=== PATIENT | male | born 1995 | race Caucasian/White ===

== ENCOUNTER 2019-05-14 23:16 | Emergency (ER) | payer MEDICAID ==
[2019-05-14 23:39] LABS: URINE SOURCE CLEAN C
[2019-05-14 23:40] LABS: URINE BILIRUBIN SMALL (NEGATIVE); URINE BLOOD NEGATIVE (NEGATIVE); URINE GLUCOSE (UA) NEGATIVE (NEGATIVE); URINE KETONE TRACE mg/dL (NEGATIVE); URINE LEUKOCYTE ESTERASE NEGATIVE (NEGATIVE); URINE NITRATE NEGATIVE (NEGATIVE); URINE PH 6.5 (4.6 - 8.0); URINE PROTEIN 30 mg/dL (NEGATIVE)
[2019-05-14 23:48] LABS: URINE CLARITY CLEAR (CLEAR); URINE COLOR YELLOW
[2019-05-14 23:52] LABS: URINE BACTERIA NONE SEEN /hpf (NONE SEEN); URINE EPITHELIAL CELLS RARE /lpf (FEW); URINE MICROSCOPIC INDICATED? YES; URINE RBC NONE SEEN /hpf (0-5); URINE WBC NONE SEEN /hpf (0-5)
[2019-05-14] MEDS ORDERED: Sodium Chloride 0.45% 1,000 ML IV ONE (23:55)
--- NOTE | 2019-05-15 00:02 | ED Physician Chart ---
ED Chief Complaint/HPI - Patient Information Date Seen:: 05/14/19 Time Seen:: 23:26 Chief Complaint:: abdominal pain History of Present Illness:: this is a 23 yo male who states that he has had right flank pain for four days non-radiating associated with vomiting. he admits to drinking alcohol, smoking and using thc. he denies blood in the urine and denies diarrhea. Allergies:: Allergies Allergy/AdvReac Type Severity Reaction Status Date / Time No Known Allergies Allergy Verified 05/14/19 23:19 Vitals:: Vital Signs - 8 hr 05/14/19 23:20 Temp 98.5 F HR 82 RR 20 BP 141/88 O2 Sat % 98 Historian:: Patient Review:: Nurse's Note Reviewed, Old Chart Reviewed ED Review of Systems - Review of Systems General/Constitutional: No fever, No chills, No weight loss, No weakness, No diaphoresis, No edema, No loss of appetite Skin: No skin lesions, No rash, No bruising Head: No headache, No light-headedness Eyes: No loss of vision, No pain, No diplopia ENT: No earache, No nasal drainage, No sore throat, No tinnitus Neck: No neck pain, No swelling, No thyromegaly, No stiffness, No mass noted Cardio Vascular: No chest pain, No palpitations, No PND, No orthopnea, No edema Pulmonary: No SOB, No cough, No sputum, No wheezing GI: Nausea, Vomiting, No diarrhea, Pain (right flank pain), No melena, No hematochezia, No constipation, No hematemesis G/U: No dysuria, No frequency, No hematuria Musculoskeletal: No bone or joint pain, No back pain, No muscle pain Endocrine: No polyuria, No polydipsia Psychiatric: No prior psych history, No depression, No anxiety, No suicidal ideation Hematopoietic: No bruising, No lymphadenopathy Allergic/Immuno: No urticaria, No angioedema Neurological: No syncope, No focal symptoms, No weakness, No paresthesia, No headache, No seizure, No dizziness, No confusion, No vertigo ED Past Medical History - Past Medical History Obtainable: Yes Past Medical History: Other (obesity) Family History: Diabetes Melitus (aunt) Social History: Smoker, Alcohol, Illicit Drug Use, Employed Surgical History: None Psychiatricy History: None Medication: Reviewed Family Medical History - Family Member Mother History Unknown: Yes Hx Family Hypertension: Yes Hx Family Diabetes: Yes ED Physical Exam - Physical Examination General/Constitutional: Awake, Well-developed, well-nourished, Alert, No distress, GCS 15, Non-toxic appearing, Ambulatory Head: Atraumatic Eyes: Lids, conjuctiva normal, PERRL, EOMI Skin: Nl inspection, No rash, No skin lesions, No ecchymosis, Well hydrated, No lymphadenopathy ENMT: External ears, nose nl, Nasal exam nl, Lips, teeth, gums nl Neck: Nontender, Full ROM w/o pain, No JVD, No nuchal rigidity, No bruit, No mass, No stridor Respiratory: Nl effort/Exclusion, Clear to Auscultation, No Wheeze/Rhonchi/Rales Cardio Vascular: RRR, No murmur, gallop, rubs, NL S1 S2 GI: No tenderness/rebounding/guarding, No organomegaly, No hernia, Normal BS's, Nondistended, No mass/bruits, No McBurney tenderness Other GI comments:: tenderness in the right lower quadrant : No CVA tenderness Extremities: No tenderness or effusion, Full ROM, normal strength in all extremities, No edema, Normal digits & nails Neuro/Psych: Alert/oriented, DTR's symmetric, Normal sensory exam, Normal motor strength, Judgement/insight normal, Mood normal, Normal gait, No focal deficits Misc: Normal back, No paraspinal tenderness ED Labs/Radiology/EKG Results - Lab Results Results: Laboratory Tests 05/14/19 23:25 Urine Source CLEAN C Urine Color YELLOW Urine Clarity CLEAR Urine pH 6.5 Ur Specific [place] 1.020 Urine Protein 30 H Urine Glucose (UA) NEGATIVE Urine Ketones TRACE Urine Blood NEGATIVE Urine Nitrate NEGATIVE Urine Bilirubin SMALL H Urine Urobilinogen 2.0 Ur Leukocyte Esterase NEGATIVE Urine RBC NONE SEEN Urine WBC NONE SEEN Ur Epithelial Cells RARE Urine Bacteria NONE SEEN ED Assessment - Assessment General Assessment: abdominal pain obesity ED Septic Shock - . Is Septic Shock (SBP<90, OR Lactate>4 mmol\L) present?: No - <6hrs of presentation: Vital Signs: Vital Signs - 8 hr 05/14/19 23:20 Temp 98.5 F HR 82 RR 20 BP 141/88 O2 Sat % 98 ED Reassessment (Disposition) - Reassessment Reassessment:: this patient will be discharged or admitted by dr reyes after the ct scan results is recieved. Reassessment Condition:: Improved - Diagnosis Diagnosis:: abdominal pain - Aftercare/Follow up Instructions Aftercare/Follow-Up Instructions:: Counseled pt regarding lab results/diagnosis & need follow up, Refer to Discharge Instructions, Counseled pt & family regarding lab results/diagnosis & need follow up Notes:: marta desirix - Patient Disposition Discharge/Transfer:: Home Condition at Disposition:: Improved
[2019-05-15 00:12] LABS: % BASOPHILS 1.8 % (0.0-2.0); % EOSINOPHILS 0.9 % (0.0-5.0); % LYMPHOCYTES 10.3 % (20.0-50.0); % MONOCYTES 2.6 % (2.0-10.0); % NEUTROPHILS 84.4 % (40.0-80.0); BASOPHILE ABSOLUTE 0.3 Th/cumm (0-0.2); EOSINOPHILE ABSOLUTE 0.2 Th/cmm (0.1-0.4); HEMATOCRIT 46.5 % (41.0-60); HEMOGLOBIN 15.6 gm/dL (12-16); LYMPHOCYTE ABSOLUTE 1.8 Th/cmm (1.5-3.0); MEAN CORPUSCULAR HEMOGLOBIN 27.8 pg (26.0-30.0); MEAN CORPUSCULAR HGB CONC 33.5 pg (28.0-36.0); MONOCYTE ABSOLUTE 0.4 Th/cmm (0.3-1.0); NEUTROPHILE ABSOLUTE 14.6 Th/cmm (1.8-8.0); PLATELET COUNT 216 Th/cmm (150-400); RED CELL DISTRIBUTION WIDTH 13.3 % (11.5-20.0)
[2019-05-15 00:17] LABS: WHITE BLOOD COUNT 17.3 Th/cmm (4.8-10.8)
[2019-05-15 00:19] LABS: INR 0.96 (0.5-1.4)
[2019-05-15 00:23] LABS: ALB/GLOB RATIO 1.4 (1.0-1.8); ALBUMIN 4.4 gm/dL (4.2-5.5); ALKALINE PHOSPHATASE 81 U/L (34-104); AMYLASE SERUM 54 U/L (29-103); ANION GAP 15.7 (7.0-16.0); BILIRUBIN,TOTAL 0.6 mg/dL (0.3-1.0); BUN - UREA NITROGEN 16 mg/dL (7-25); CALCIUM SERUM 9.3 mg/dL (8.6-10.3); CARBON DIOXIDE 26.7 mEq/L (21.0-31.0); CHLORIDE 102 mEq/L (98-107); CHOLESTEROL 166 mg/dL (<200); CREATININE - SERUM 0.8 mg/dL (0.7-1.3); GFR AFRICAN-AMERICAN > 60.0 ml/min (>90); GFR NON AFRICAN-AMERICAN > 60.0 ml/min; GLUCOSE 107 mg/dL (70-105); HDL -HIGH DENSITY LIPOPROTEIN 39 mg/dL (23-92); LIPASE 122 U/L (11-82); POTASSIUM SERUM 3.4 mEq/L (3.5-5.1); SGOT 16 U/L (13-39); SGPT/ALT 14 U/L (7-52); SODIUM SERUM 141 mEq/L (136-145); TOTAL PROTEIN,SERUM 7.6 gm/dL (6.0-8.3); TRIGLYCERIDES 93 mg/dL (<150)
[2019-05-15 01:09] LABS: AMPHETAMINE URINE NEGATIVE (NEGATIVE); BARBITURATES URINE NEGATIVE (NEGATIVE); BENZODIAZEPINES QUAL URINE NEGATIVE (NEGATIVE); CANNABINOID THC POSITIVE (NEGATIVE); COCAINE METABOLITE QUAL URINE NEGATIVE (NEGATIVE); METHADONE URINE NEGATIVE (NEGATIVE); METHAMPHETAMINES QUAL URINE NEGATIVE (NEGATIVE); OPIATES (MORPHINE) QUAL. URINE NEGATIVE (NEGATIVE); PHENCYCLIDINE (PCP) URINE NEGATIVE (NEGATIVE); TRICYCLICS (TCA) QUAL. URINE NEGATIVE (NEGATIVE)
[2019-05-15] MEDS ORDERED: Potassium Chloride Elixir 20 mEq /15 mL UDC ONE (01:31)
[2019-05-15] MEDS ORDERED: Potassium Chloride Elixir 20 mEq /15 mL UDC PO ONE (01:40)
--- NOTE | 2019-05-15 07:52 | Diagnostic Imaging Report ---
CT scan abdomen and pelvis without intravenous contrast HISTORY: Pain Total DLP equals 937 CTDI equals 18.2 Axial sections were obtained from the xiphoid process down to the pubic symphysis. The liver exhibits a normal size and contour. No focal lesions. The spleen appears normal. No abnormalities are seen in the region of the pancreas. No significant focal renal lesions. No hydronephrosis. The exam of the pelvis demonstrates preservation of normal fat planes. No abnormal soft tissue masses or abnormal fluid collections. No abnormality seen in the region of the appendix. IMPRESSION: No acute abnormalities
== END 2019-05-15 08:42 | disposition home or self-care (01) ==
LOC: ER 23:16
DX: R10.31 Right lower quadrant pain (principal); E66.9 Obesity, unspecified; F17.200 Nicotine dependence, unspecified, uncomplicated
CPT/HCPCS: 99284; 96374; 96375; 84484; 36415 ×2; 83605; 80307; 84443; 85025; 85610; 81001; 80320; 82150; 83690; 80053; 80061; 87040; 74176; J1885; J0696

== ENCOUNTER 2019-05-18 06:54 | Emergency (ER) | payer MEDICAID ==
--- NOTE | 2019-05-18 07:09 | ED Physician Chart ---
ED Chief Complaint/HPI - Patient Information Date Seen:: 05/18/19 Time Seen:: 07:09 Chief Complaint:: RUQ abdominal pain History of Present Illness:: 23 yo male developed intermittent RUQ abdominal pain for 1 week with nausea and vomiting. Pt also had mid chest pain. Pt smokes tobacco daily and uses marijuana 3 times a week. Pt visited this ER for similar symptoms [address] abdomen was negative. Allergies:: Allergies Allergy/AdvReac Type Severity Reaction Status Date / Time No Known Allergies Allergy Verified 05/14/19 23:19 ED Review of Systems - Review of Systems General/Constitutional: No fever, No chills Skin: No rash Head: No headache Eyes: No pain ENT: No earache Neck: No neck pain Cardio Vascular: Chest pain Pulmonary: No SOB GI: Nausea, Vomiting Musculoskeletal: No bone or joint pain Neurological: No focal symptoms ED Past Medical History - Past Medical History Past Medical History: Dyslipidemia Social History: Smoker, Alcohol, Illicit Drug Use (marijuana) Surgical History: None Family Medical History - Family Member Mother History Unknown: Yes Hx Family Hypertension: Yes Hx Family Diabetes: Yes ED Physical Exam - Physical Examination General/Constitutional: Awake, Alert Head: Atraumatic Eyes: PERRL, EOMI Skin: No skin lesions ENMT: Nasal exam nl Neck: No nuchal rigidity Respiratory: Clear to Auscultation Cardio Vascular: RRR, NL S1 S2 Other GI comments:: RUQ tenderness Other comments:: Right CVA percussion tenderness Neuro/Psych: No focal deficits ED Labs/Radiology/EKG Results - Lab Results Results: Laboratory Last Values WBC 8.2 Th/cmm (4.8-10.8) 05/18/19 07:32 RBC 5.18 Mil/cmm (4.30-5.70) 05/18/19 07:32 Hgb 14.4 gm/dL (12-16) 05/18/19 07:32 Hct 43.7 % (41.0-60) 05/18/19 07:32 MCV 84.4 fl (80-99) 05/18/19 07:32 MCH 27.9 pg (26.0-30.0) 05/18/19 07:32 MCHC Differential 33.0 pg (28.0-36.0) 05/18/19 07:32 RDW 14.8 % (11.5-20.0) 05/18/19 07:32 Plt Count 183 Th/cmm (150-400) 05/18/19 07:32 MPV 10.6 fl 05/18/19 07:32 Neutrophils % 60.6 % (40.0-80.0) 05/18/19 07:32 Lymphocytes % 30.2 % (20.0-50.0) 05/18/19 07:32 Monocytes % 5.1 % (2.0-10.0) 05/18/19 07:32 Eosinophils % 3.1 % (0.0-5.0) 05/18/19 07:32 Basophils % 1.0 % (0.0-2.0) 05/18/19 07:32 PT 9.7 SECONDS (9.5-11.5) 05/18/19 07:32 INR 0.93 (0.5-1.4) 05/18/19 07:32 PTT (Actin FS) 28.4 SECONDS (26.0-38.0) 05/18/19 07:32 Sodium 139 mEq/L (136-145) 05/18/19 07:32 Potassium 4.1 mEq/L (3.5-5.1) 05/18/19 07:32 Chloride 105 mEq/L (98-107) 05/18/19 07:32 Carbon Dioxide 25.0 mEq/L (21.0-31.0) 05/18/19 07:32 Anion Gap 13.1 (7.0-16.0) 05/18/19 07:32 BUN 17 mg/dL (7-25) 05/18/19 07:32 Creatinine 0.7 mg/dL (0.7-1.3) 05/18/19 07:32 Est GFR ( Amer) > 60.0 ml/min (>90) 05/18/19 07:32 Est GFR (Non-Af Amer) > 60.0 ml/min 05/18/19 07:32 BUN/Creatinine Ratio 24.3 05/18/19 07:32 Glucose 98 mg/dL (70-105) 05/18/19 07:32 Calcium 9.0 mg/dL (8.6-10.3) 05/18/19 07:32 Total Bilirubin 0.4 mg/dL (0.3-1.0) 05/18/19 07:32 AST 14 U/L (13-39) 05/18/19 07:32 ALT 16 U/L (7-52) 05/18/19 07:32 Alkaline Phosphatase 62 U/L (34-104) 05/18/19 07:32 Troponin I 0.01 ng/mL (0.01-0.05) 05/18/19 07:32 Total Protein 6.9 gm/dL (6.0-8.3) 05/18/19 07:32 Albumin 3.9 gm/dL (4.2-5.5) L 05/18/19 07:32 Globulin 3.0 gm/dL 05/18/19 07:32 Albumin/Globulin Ratio 1.3 (1.0-1.8) 05/18/19 07:32 Amylase 31 U/L (29-103) 05/18/19 07:32 Lipase 9 U/L (11-82) L 05/18/19 07:32 Urine Source MIDSTREAM 05/18/19 07:32 Urine Color YELLOW 05/18/19 07:32 Urine Clarity CLEAR (CLEAR) 05/18/19 07:32 Urine pH 6.0 (4.6 - 8.0) 05/18/19 07:32 Ur Specific [place] >= 1.030 (1.005-1.030) 05/18/19 07:32 Urine Protein NEGATIVE mg/dL (NEGATIVE) 05/18/19 07:32 Urine Glucose (UA) NEGATIVE mg/dL (NEGATIVE) 05/18/19 07:32 Urine Ketones NEGATIVE mg/dL (NEGATIVE) 05/18/19 07:32 Urine Blood NEGATIVE (NEGATIVE) 05/18/19 07:32 Urine Nitrate NEGATIVE (NEGATIVE) 05/18/19 07:32 Urine Bilirubin NEGATIVE (NEGATIVE) 05/18/19 07:32 Urine Urobilinogen 0.2 E.U./dL (0.2 - 1.0) 05/18/19 07:32 Ur Leukocyte Esterase NEGATIVE (NEGATIVE) 05/18/19 07:32 Urine Opiates Screen NEGATIVE (NEGATIVE) 05/18/19 07:32 Urine Methadone Screen NEGATIVE (NEGATIVE) 05/18/19 07:32 Ur Barbiturates Screen NEGATIVE (NEGATIVE) 05/18/19 07:32 Ur Tricyclics Screen NEGATIVE (NEGATIVE) 05/18/19 07:32 Ur Phencyclidine Scrn NEGATIVE (NEGATIVE) 05/18/19 07:32 Amphetamines Screen NEGATIVE (NEGATIVE) 05/18/19 07:32 U Methamphetamines Scrn NEGATIVE (NEGATIVE) 05/18/19 07:32 U Benzodiazepines Scrn NEGATIVE (NEGATIVE) 05/18/19 07:32 U Cocaine Metab Screen NEGATIVE (NEGATIVE) 05/18/19 07:32 U Cannabinoids Screen POSITIVE (NEGATIVE) H 05/18/19 07:32 - Radiology Results Results: Abdominal U/S: hepatomegaly - EKG Interpretations EKG Time:: 20:48 Rate & Rhythm: 54 bpm, sinus rhythm [place]: Normal Intervals: Non specific ST changes Comments:: Normal EKG ED Assessment - Assessment General Assessment: Abdominal pain Hepatomegaly Obesity THC use Assessment/Comments:: CBC, CMP, PT/PTT, Troponin lipase, amylase, acute hepatitis panel EKG Abdominal U/S Pantoprazole 40 mg PO ED Septic Shock - . Is Septic Shock (SBP<90, OR Lactate>4 mmol\L) present?: No ED Reassessment (Disposition) - Reassessment Reassessment Condition:: Improved - Aftercare/Follow up Instructions Notes:: D/c home F/u PCP or return to ER if symptoms worsen - Patient Disposition Discharge/Transfer:: Home
[2019-05-18 07:52] LABS: URINE SOURCE MIDSTREAM
[2019-05-18 08:00] LABS: INR 0.93 (0.5-1.4)
[2019-05-18 08:02] LABS: URINE BILIRUBIN NEGATIVE (NEGATIVE); URINE BLOOD NEGATIVE (NEGATIVE); URINE GLUCOSE (UA) NEGATIVE (NEGATIVE); URINE KETONE NEGATIVE (NEGATIVE); URINE LEUKOCYTE ESTERASE NEGATIVE (NEGATIVE); URINE NITRATE NEGATIVE (NEGATIVE); URINE PROTEIN NEGATIVE (NEGATIVE); URINE UROBILINOGEN 0.2 E.U./dL (0.2 - 1.0)
[2019-05-18 08:08] LABS: URINE CLARITY CLEAR (CLEAR); URINE COLOR YELLOW; URINE MICROSCOPIC INDICATED? NO
[2019-05-18 08:12] LABS: ALB/GLOB RATIO 1.3 (1.0-1.8); ALBUMIN 3.9 gm/dL (4.2-5.5); ALKALINE PHOSPHATASE 62 U/L (34-104); ANION GAP 13.1 (7.0-16.0); BILIRUBIN,TOTAL 0.4 mg/dL (0.3-1.0); BUN - UREA NITROGEN 17 mg/dL (7-25); CHLORIDE 105 mEq/L (98-107); CREATININE - SERUM 0.7 mg/dL (0.7-1.3); GFR AFRICAN-AMERICAN > 60.0 ml/min (>90); GFR NON AFRICAN-AMERICAN > 60.0 ml/min; GLUCOSE 98 mg/dL (70-105); POTASSIUM SERUM 4.1 mEq/L (3.5-5.1); SGOT 14 U/L (13-39); SGPT/ALT 16 U/L (7-52); SODIUM SERUM 139 mEq/L (136-145); TOTAL PROTEIN,SERUM 6.9 gm/dL (6.0-8.3)
[2019-05-18 08:13] LABS: AMYLASE SERUM 31 U/L (29-103); LIPASE 9 U/L (11-82)
[2019-05-18] MEDS: Pantoprazole 40 mg EC Tab PO STA (08:20)
[2019-05-18] MEDS ORDERED: Pantoprazole 40 mg EC Tab PO ONE (08:21)
--- NOTE | 2019-05-18 08:54 | Diagnostic Imaging Report ---
Abdominal ultrasound HISTORY: Pain The exam is very limited due to patient's size, body habitus, bowel gas. Suboptimal detail of the liver which appears to be enlarged. No obvious focal lesions. No definite abnormality seen within the gallbladder. No biliary dilatation. Incomplete visualization of the pancreas. No focal renal lesions or hydronephrosis. Suboptimal delineation of the spleen. No other retroperitoneal or intra-abdominal abnormalities. IMPRESSION: 1. Limited exam due to patient size, body habitus, bowel gas 2. Suggestion of hepatomegaly
[2019-05-18 09:24] LABS: AMPHETAMINE URINE NEGATIVE (NEGATIVE); BARBITURATES URINE NEGATIVE (NEGATIVE); BENZODIAZEPINES QUAL URINE NEGATIVE (NEGATIVE); CANNABINOID THC POSITIVE (NEGATIVE); COCAINE METABOLITE QUAL URINE NEGATIVE (NEGATIVE); METHADONE URINE NEGATIVE (NEGATIVE); METHAMPHETAMINES QUAL URINE NEGATIVE (NEGATIVE); OPIATES (MORPHINE) QUAL. URINE NEGATIVE (NEGATIVE); PHENCYCLIDINE (PCP) URINE NEGATIVE (NEGATIVE); TRICYCLICS (TCA) QUAL. URINE NEGATIVE (NEGATIVE)
[2019-05-18 09:57] LABS: HEMATOCRIT 43.7 % (41.0-60); HEMOGLOBIN 14.4 gm/dL (12-16); MEAN CELL VOLUME 84.4 fl (80-99); MEAN CORPUSCULAR HEMOGLOBIN 27.9 pg (26.0-30.0); RED BLOOD COUNT 5.18 Mil/cmm (4.30-5.70); WHITE BLOOD COUNT 8.2 Th/cmm (4.8-10.8)
[2019-05-18 09:58] LABS: % EOSINOPHILS 3.1 % (0.0-5.0); % LYMPHOCYTES 30.2 % (20.0-50.0); % MONOCYTES 5.1 % (2.0-10.0); % NEUTROPHILS 60.6 % (40.0-80.0); BASOPHILE ABSOLUTE 0.1 Th/cumm (0-0.2); EOSINOPHILE ABSOLUTE 0.3 Th/cmm (0.1-0.4); LYMPHOCYTE ABSOLUTE 2.5 Th/cmm (1.5-3.0); MONOCYTE ABSOLUTE 0.4 Th/cmm (0.3-1.0); PLATELET COUNT 183 Th/cmm (150-400); RED CELL DISTRIBUTION WIDTH 14.8 % (11.5-20.0)
[2019-05-19 08:05] LABS: HEP A AB IGM Negative (Negative); HEP B CORE IGM Negative (Negative); HEP B SURFACE AG QL Negative (Negative); HEP C ANTIBODY 0.1 s/co ratio (0.0-0.9)
== END 2019-05-18 10:22 | disposition home or self-care (01) ==
LOC: ER 06:54
DX: R10.11 Right upper quadrant pain (principal); R16.0 Hepatomegaly, not elsewhere classified; F12.90 Cannabis use, unspecified, uncomplicated; E66.9 Obesity, unspecified; E78.5 Hyperlipidemia, unspecified; F17.200 Nicotine dependence, unspecified, uncomplicated
CPT/HCPCS: 36415-UA; 76700-TC; 80053-TC; 80074-90; 80307; 81003-TC; 82150-TC; 83690-TC; 84484-TC; 85025-TC; 85610-TC; 93005; Z7610